=== PATIENT | male | born 1965 | race Caucasian/White ===

== ENCOUNTER 2023-09-20 19:59 | Emergency (ER) | payer BC ==
[~2023-09-20] VITALS: Ht 177.8 cm; Wt 82.0 kg
[2023-09-20 20:19] VITALS: O2SAT 98
[2023-09-20] MEDS ORDERED: IBUP-2028 MT (21:08)
[2023-09-20] MEDS ORDERED: TOPUD MT (21:08)
[2023-09-20] MEDS ORDERED: KETOROLAC 30MG/ML VIAL IM ONE (21:15)
[2023-09-20] MEDS ORDERED: ACETAMINOPHEN 325MG TABLET PO ONE (21:15)
[2023-09-20] MEDS ORDERED: KETOROLAC 30MG/ML VIAL ONE (21:22)
[2023-09-20] MEDS ORDERED: ACETAMINOPHEN 325MG TABLET ONE (21:23)
[2023-09-20 21:37] VITALS: BP 130/86
[2023-09-20 21:42] VITALS: PULSE 98; RESP 16; TEMP 98.3
== END 2023-09-20 21:43 | disposition home or self-care (01) ==
LOC: ER 20:29
DX: M25.561 Pain in right knee (principal)
CPT/HCPCS: 73564; 96372; 99283; J1885; Z7610